=== PATIENT | male | born 1985 | race Caucasian/White ===

== ENCOUNTER 2024-07-06 17:07 | Emergency (ER) | payer OTHER ==
[~2024-07-06] VITALS: Ht 167.6 cm; Wt 79.8 kg
[2024-07-06 17:15] VITALS: BP 106/74; PULSE 82; RESP 16; TEMP 98.5; O2SAT 100
--- NOTE | 2024-07-06 17:24 | NUR ---
PT TO BED 1
--- NOTE | 2024-07-06 17:30 | NUR ---
39 Y/O M WITH C/O R ARM LACERATION, CUT WITH METAL ABOUT AN HOUR AGO, THINKS HIS LAST TETNUS WAS3 YRS AGO. VSS. PT PULSE PRESSENT. PMH: DENIES
[2024-07-06] MEDS ORDERED: LIDOCAINE MPF 1% 5 ML ONE (17:31)
[2024-07-06] MEDS: LIDOCAINE MPF 1% 10 MG/ML VIAL INJ ONE (17:38)
--- NOTE | 2024-07-06 17:45 | NUR ---
PROVIDER AT BEDSIDE FOR EVAL OF LACERATION.
[2024-07-06] MEDS ORDERED: CEPH-588 PO (18:52)
--- NOTE | 2024-07-06 18:59 | NUR ---
Note undone in EDM - 07/06/24 at 1905 by PHSEP Patient discharged with v/s stable. Written and verbal after care instructions FOR CELLULITIS given and explained. Patient alert, oriented and verbalized understanding of instructions. Ambulatory with steady gait. All questions addressed prior to discharge. ID band removed. Patient advised to follow up with PMD. Rx of KEFLEX, IBUPROFEN AND BACTRIM given. Opportunity to ask questions provided and answered.
[2024-07-06 19:00] VITALS: BP 106/74; PULSE 82; RESP 16; TEMP 98.5; O2SAT 100
--- NOTE | 2024-07-06 19:01 | NUR ---
Patient discharged with v/s stable. Written and verbal after care instructions given and explained. Patient verbalized understanding. Ambulatory with steady gait. All questions addressed prior to discharge. Advised to follow up with PMD.
--- NOTE | 2024-07-06 19:09 | NUR ---
Chart checked and completed. The patient's care was reviewed and supervised by LUCILLE JENSEN RN.
== END 2024-07-06 19:00 | disposition home or self-care (01) ==
LOC: MED 17:07
DX: S51.811A Laceration without foreign body of right forearm, initial encounter (principal); F17.210 Nicotine dependence, cigarettes, uncomplicated; Z79.899 Other long term (current) drug therapy; W26.8XXA Contact with other sharp object(s), not elsewhere classified, initial encounter; Y93.E9 Activity, other interior property and clothing maintenance; Y92.098 Other place in other non-institutional residence as the place of occurrence of the external cause; Y99.8 Other external cause status
CPT/HCPCS: 12004; 99282; J2001